=== PATIENT | male | born 1995 | race Hispanic/Latino ===

== ENCOUNTER 2016-07-27 10:48 | Emergency (ER) | payer OTHER ==
[~2016-07-27] VITALS: Ht 172.7 cm; Wt 65.8 kg
[2016-07-27] MEDS ORDERED: NORCO, ANEXSIA 5/325MG TABLET (HYDROcodone/ACETAMINOPHEN) PO ONE (11:00)
[2016-07-27] MEDS ORDERED: NAPR500T PO (11:38)
[2016-07-27 11:57] VITALS: BP 124/71
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
[2016-07-27] MEDS ORDERED: IBUP800T23 PO (18:19)
[2016-07-27] MEDS ORDERED: HYDR-3713 PO (18:57)
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
== END 2016-07-27 12:00 | disposition home or self-care (01) ==
LOC: EDBD 10:48 → M ED 11:29
DX: S93.401A Sprain of unspecified ligament of right ankle, initial encounter (principal); V28.4XXA Motorcycle driver injured in noncollision transport accident in traffic accident, initial encounter; Y92.410 Unspecified street and highway as the place of occurrence of the external cause

== ENCOUNTER → 2016-07-27 | Emergency (ER) | payer OTHER ==
[~2016-07-27] VITALS: Ht 172.7 cm; Wt 63.5 kg
[~2016-07-27] MED LIST: HYDR-3713 PO; IBUP800T23 PO; NAPR500T PO; NORCO, ANEXSIA 5/325MG TABLET (HYDROcodone/ACETAMINOPHEN) PO ONE
[2016-07-27 18:02] VITALS: BP 142/84
== END | disposition home or self-care (01) ==
LOC: M ED 19:05
DX: S93.411D Sprain of calcaneofibular ligament of right ankle, subsequent encounter (principal); V28.4XXD Motorcycle driver injured in noncollision transport accident in traffic accident, subsequent encounter; Y92.410 Unspecified street and highway as the place of occurrence of the external cause; F17.210 Nicotine dependence, cigarettes, uncomplicated; Z79.1 Long term (current) use of non-steroidal anti-inflammatories (NSAID)